=== PATIENT | male | born 1945 | race Caucasian/White ===

== ENCOUNTER → 2023-08-22 07:55 | Outpatient (REF) | payer MEDICARE, SELFPAY ==
--- NOTE | 2023-08-22 08:04 | CA_ITS ---
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 The calculated ejection fraction is 57% by biplane method. - There is mild calcification of the aortic valve. - There is mild aortic valve regurgitation. Findings Left Ventricle Normal left ventricular cavity size. There is mildly increased left ventricular wall thickness. The left ventricular systolic function is normal. The calculated ejection fraction is 57% by biplane method. There is no evidence of regional wall motion abnormalities. Evidence suggests grade I (mild) diastolic dysfunction. LV peak GLS -17.7%. Right Ventricle Normal right ventricular cavity size and systolic function. Atria Both atria are normal in size. Aortic Valve There is mild calcification of the aortic valve. There is no aortic valve stenosis. There is mild aortic valve regurgitation. Mitral Valve There is mild anterior mitral leaflet thickening. There is trace mitral valve regurgitation. There is no mitral valve stenosis. Pulmonic Valve The pulmonic valve is likely normal. Tricuspid Valve There is trace tricuspid valve regurgitation. There is no evidence of pulmonary hypertension. Great Vessels The asc aorta is normal in size. Venous The inferior vena cava is normal in size and collapses greater than 50% with inspiration. Pericardium/Pleural There is a trivial pericardial effusion. Prior Study Comparison No prior study available for comparison. Measurements 2D Linear Measurements IVSd: 1.06 0.6-0.9/0.6-1.0 cm LVIDd: 4.85 3.9-5.3/4.2-5.9 cm LVIDd Index: 2.17 2.4-3.2/2.2-3.1 cm/m2 LVIDs: 3.03 2.0-3.6 cm LVPWd: 1.11 0.7-1.1 cm Ao Root: 3.60 2.1-3.5 cm LA Diam: 4.20 2.7-3.8/3.0-4.0 cm LAIDs Index: 1.88 1.5-2.3 cm/m2 LV Mass: 241.14 67-162/88-224 g LV Mass Index: 107.65 43-95/49-115 g/m2 LVOT Diam: 2.40 3.0+(-)1.3 cm 2D Systolic Function EF 4C: 54.20 >55% EF 2C: 57.00 >55% EF BiP: 57.00 >55% Mitral Valve MV Pk E: 0.63 MV PK A: 1.03 MV Decel Time: 105.00 E/A: 0.60 E'Lateral: 5.98 E'Medial: 4.13 E/E' Med: 15.30 E/E' Lat: 10.50 PHT: 31.00 MVA PHT: 7.10 Decel Ogle: 5.99 Aortic Valve AoV Pk Sabas: 1.81 AoV Mn Sabas: 1.16 AoV VTI: 0.38 AoV Pk Grad: 13.00 Aov Mn Grad: 6.00 ROB Cont.VTI: 3.33 LVOT LVOT Pk Sabas: 1.36 LVOT Mn Sabas: 0.87 LVOT VTI: 0.28 LVOT Pk Grad: 7.00 LVOT Mn Grad: 4.00 LVOT Diam: 2.40 LVOT Area: 4.52 Diastolic Function MV Pk E: 0.63 MV Pk A: 1.03 E/A: 0.60 E'Medial: 4.13 E/E' Med: 15.30 E' Laterial: 5.98 E/E' Lat: 10.50 Right Ventricle TAPSE (mm): 27.00 TVS' Sabas: 12.00 Tricuspid Valve TR Pk Sabas: 2.25 TR Pk Grad: 20.00 RA Press: 3.00 RVSP: 23.00 Great Vessels Aorta Ao Root-2D: 3.60 2.0-3.7 cm Ao Asc: 3.80 2.1-3.4 cm Pulmonary Valve PV Pk Sabas: 1.15 Peak PV Grad: 5.00 Updated in Other Vendor System with Status of Final Ron Mcqueen MD electronically signed on 08/22/2023 1:03:16 PM with status of Final
== END ==
LOC: HO.CARD 07:55
PROVIDERS: PCP Internal Medicine; Visit Provider Family Medicine
DX: Z01.818 Encounter for other preprocedural examination (principal); R60.0 Localized edema
CPT/HCPCS: 93306; 93356

== ENCOUNTER → 2023-08-22 08:04 | Outpatient (BNV) | payer MEDICARE, SELFPAY | PROVIDERS: PCP Internal Medicine; Visit Provider Internal Medicine | DX: I35.1 Nonrheumatic aortic (valve) insufficiency (principal) | CPT/HCPCS: 93306 ==

== ENCOUNTER 2024-12-03 09:31 | Outpatient (AMB) | payer MEDICARE, SELFPAY ==
--- NOTE | 2024-12-03 09:55 | A.OFFVIS_ITS ---
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 Has a background of multiple myeloma but well controlled according to him and he has had that for almost 10 years now. He is on maintenance Pomalidomide. According to him, no prior history of coronary disease or myocardial infarction or cardiomyopathy. He states that he has been noticing some jaw pain that happens when he is going on walks extra. 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 However, he does not get jaw pain with chewing. Denies any history of chest pain or any clear cardiac symptoms otherwise. Nonspecific fatigue. Otherwise, it seems that he has also had evaluation for osteonecrosis of jaw and ruled out. He states he had a recent PET scan which was also okay. Exercise The patient engages in walking, [place]. The onset of jaw pain during these episodes raises concerns for potential cardiac causes. [facility] Medical History (Updated 12/03/24 @ 11:31 by Ron Mcqueen MD) Multiple myeloma Family History (Updated 12/03/24 @ 10:03 by Dea Jack CMA) Father Heart failure Social History (Updated 12/03/24 @ 10:04 by Dea Jack CMA) Alcohol intake: current Alcohol intake frequency: 0-2 drinks per day Alcohol type: beer, wine, hard liquor and other Patient Tobacco Use Status: Never used Tobacco Review of Systems Const Denies chills, Denies fatigue, Denies fever(s), Denies frequent falls, Denies weakness, Denies weight gain and Denies weight loss ENT Denies dizziness Card Denies chest pain, Denies leg edema, Denies lightheadedness, Denies palpitations, Denies dyspnea, Denies dyspnea on exertion and Denies orthopnea Resp Denies cough, Denies dyspnea and Denies dyspnea on exertion GI Denies bloating and Denies change in bowel habits Musc Denies muscle weakness, Denies numbness and Denies tingling Neuro Denies dizziness, Denies frequent falls, Denies numbness, Denies tingling and Denies weakness Endo Denies fatigue and Denies palpitations Physical Exam Vital Signs: Last Vital Signs Pulse 72 12/03/24 09:57 BP 124/62 12/03/24 09:57 BMI result Body Mass Index 30.3 Const General: comfortable and no acute distress Orientation/consciousness: patient oriented x3 HEENT Other: Unremarkable Head: Yes normal to inspection Neck Neck: Yes normal visual inspection Chest Chest palpation & inspection: normal inspection of the chest Resp Auscultation: clear to auscultation bilaterally Cardio Palpation: normal PMI Heart sounds: S1 normal heart sound present, S2 normal heart sound present, no gallops, no murmurs and no rubs GI Palpation (GI): Soft to palpation Back/Spine/Pelvis Other: unremarkable Skin General skin exam: no rashes or lesions noted Neuro General: patient oriented x3 Extrem General: Yes normal to inspection Psych Mental Status: mental status grossly normal Office Procedures EKG Details: EKG with underlying sinus rhythm at 72/Min; incomplete right bundle-branch block pattern; [place]. [address]-[id number], Complete Assessment & Plan Assessment & Plan (1) Jaw pain: Code(s): R68.84 - Jaw pain Category: Medical (2) Fatigue: Code(s): R53.83 - Other fatigue Category: Medical Plan Exertional jaw pain which needs further evaluation. Could be anginal presentation although he does not have clear chest pain. We will plan on exercise stress myocardial perfusion imaging study for further evaluation. We will also get an echocardiogram. We discussed about this planned today and he is willing to proceed. Discussion Notes We discussed the potential causes of the patient's jaw pain, considering both cardiac and musculoskeletal origins. I explained the rationale for conducting a stress test and an echocardiogram, highlighting the concern for angina given the pain's association with exertion. The patient was informed of the wait time for testing but reassured of the urgency placed on scheduling. Consent for proposed diagnostic evaluations was obtained, and the patient acknowledged understanding of risks and benefits. Anticipatory guidance was provided to monitor symptoms and report any escalation. Follow-up plans were discussed to review subsequent test outcomes and manage ongoing arthritis. Patient was informed and verbally consented to the use of an ambient scribe for clinic note documentation during this visit. Orders: Orders CA echo transthoracic complete Today R53.83 - Other fatigue, R68.84 - Jaw pain CA stress test Today R68.84 - Jaw pain NM cardiolite stress test Today R07.2 - Precordial pain, R68.84 - Jaw pain Patient Instructions: - Follow the upcoming schedule for stress test and echocardiogram. - Continue taking baby aspirin as prescribed. - Report any increase in pain or new symptoms immediately. - Avoid excessive jaw clenching and manage stress to mitigate temporomandibular pain. - Engage in physical activity as able, without provoking significant pain. - Attend follow-up appointments as planned to discuss test results and treatment options. Coding Level of Care Code New Pt Level 4 (37709) Complex EM visit Add On G2211 Diagnoses Jaw pain R68.84 Fatigue R53.83 CPT Codes EKG - CPT: 36489-[id number], Complete ([id number])
[2024-12-03 09:57] VITALS: BP 124/62; PULSE 72; BMI 30.3
--- OUTSIDE RECORDS SUMMARY | 2024-12-03 10:16 | XMS_ITS ---
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 Name Role Phone Iris Bush Unavailable Unavailable Bettye Julian Unavailable Unavailable Dhaval Johnosn Unavailable Unavailable Carey Bustos Unavailable Unavailable Garrett Rees Unavailable Unavailable Bi Cardozo Unavailable Unavailable Lori Galeas Unavailable Unavailable Beckie Gonzalez Unavailable Unavailable Tracey Arnold Unavailable Unavailable Katelynn Stiles Unavailable Unavailable Allergies and adverse reactions No Known Allergies Care Team Name Role Address Phone Organization Dates Bi Cardozo PCP [address] [place] [address], [id number], [place] (Office): : [facility] [place] 04/22/2022 - 04/26/2022 Iris Bush Attending Physician [address] [place] [address], [facility], [place] (Office): [phone] [facility] [place] 04/22/2022 - 04/26/2022 Bettye Julian Attending Physician [address] [place] [address], [place] (Office): [facility] [place] 04/22/2022 - 04/26/2022 Dhaval [place], [address], [place] (Office): [facility] [place] 04/22/2022 - 04/26/2022 Carey Bustos Attending Physician [address] [place] [address], [address], [place] (Office): [facility] [place] 04/22/2022 - 04/26/2022 Garrett Rees Attending Physician [address] [place], [address], [facility] (Office): [facility] [place] 04/22/2022 - 04/26/2022 Lori Galeas Attending Physician [address] [place], [address], [place] (Office): [facility] [place] 04/22/2022 - 04/26/2022 Beckie Gonzalez Attending Physician [address] [place] [address], [id number], [facility] (Office): : [facility] [place] 04/22/2022 - 04/26/2022 Tracey Arnold Attending Physician [address], [address], [place] (Office): : [facility] [place] 04/22/2022 - 04/26/2022 Katelynn Stiles Attending Physician [address] [place] [address] [address], [place], [address], [facility] (Office): : [facility] [place] 04/22/2022 - 04/26/2022 Immunizations Immunization Status Vaccine Details Vaccine Code CodeSystem Cirilo e Notes SARS-COV-2 (COVID-19) completed SARS-COV-2 (COVID-19) vaccine, mRNA, spike protein, LNP, preservative free, 30 mcg/0.3mL dose Mfg: [employer] Step 2 of Multi-step with next step required 208 CVX created date: 04/22/2022 administered date: 10/02/2020 SARS-COV-2 (COVID-19) completed SARS-COV-2 (COVID-19) vaccine, mRNA, spike protein, LNP, preservative free, 30 mcg/0.3mL dose Mfg: [employer] Step 1 of Multi-step with next step required 208 CVX created date: 04/22/2022 administered date: 09/10/2020 SARS-COV-2 (COVID-19 BOOSTER) completed SARS-COV-2 (COVID-19) vaccine, mRNA, spike protein, LNP, preservative free, 30 mcg/0.3mL dose, emelia-sucrose formulation Mfg: [employer] 217 CVX created date: 04/22/2022 administered date: 09/20/2021 SARS-COV-2 (COVID-19 BOOSTER) completed SARS-COV-2 (COVID-19) vaccine, mRNA, spike protein, LNP, preservative free, 30 mcg/0.3mL dose, emelia-sucrose formulation Mfg: [employer] 217 CVX created date: 04/22/2022 administered date: 03/22/2021 Mental Status Section Date Assessment Total Score Description 04/26/2022 BIMS 15 cognitively int act CAM 0 No delirium ind icated PHQ-9 02 minimal depress ion Problems Problem # Description Date of onset Resolved Date Code CodeSystem Concern Status 1 BENIGN PROSTATIC HYPERPLASIA WITHOUT LOWER URINARY TRACT SYMPTOMS [address] active 2 DISPLACED INTERTROCHANTERIC FRACTURE OF RIGHT FEMUR, SUBSEQUENT ENCOUNTER FOR CLOSED FRACTURE WITH ROUTINE HEALING [address] active 3 MULTIPLE MYELOMA NOT HAVING ACHIEVED REMISSION [address] active Reason for Referral No Reasons for Referral Entered Social History Social History Observation Description Start Date End Date Code Code System Current Smoking Status Tobacco smoking consumption unknown 288890801 SNOMED CT Sex Assigned At Male 1945 [address]-9 [facility] Vital Signs Code Code System Vitals Name Values and Units Timing Information 9279-1 [facility] Respiratory Rate Value=18.0 Units=/m in 04/26/2022 8462-4 [facility] Blood Pressure-Diastolic Value=53 Un its=mmHg 04/26/2022 8480-6 LOINC Blood Pressure-Systolic Hlzma=924 Un its=mmHg 04/26/2022 8310-5 [facility] Body Temperature Value=97.2 Units=?? F 04/26/2022 8867-4 [facility] Heart rate Value=64.0 Units=/min 70580-3 LOINC O2 % BldC Oximetry Value=94.0 Units= % 04/26/2022 13803-4 LOINC Pain Level Value=0.0 04/26/2022 10951-4 LOINC Weight Ekdad=822.0 Units=Lbs 8302-2 LOINC Height Value=71.5 Units=Inches 04/22/2022
== END 2024-12-03 10:41 | disposition home or self-care (01) ==
LOC: HO.HCS 09:32
PROVIDERS: PCP Internal Medicine; Visit Provider Internal Medicine
DX: R53.83 Other fatigue (principal); R68.84 Jaw pain; R94.31 Abnormal electrocardiogram [ECG] [EKG]; I45.10 Unspecified right bundle-branch block
CPT/HCPCS: 93010; 99214; G2211

== ENCOUNTER → 2024-12-03 09:31 | Outpatient (BNVA) | payer MEDICARE, SELFPAY | PROVIDERS: PCP Internal Medicine; Visit Provider Internal Medicine | DX: R68.84 Jaw pain (principal); R53.83 Other fatigue | CPT/HCPCS: 93005; 99212 ==

== ENCOUNTER → 2024-12-08 09:29 | Outpatient (REF) | payer MEDICARE, SELFPAY ==
--- NOTE | ~2024-12-08 | NM_ITS ---
EXERCISE MYOCARDIAL PERFUSION STUDY INDICATION: Coronary artery disease, angina TECHNIQUE: The patient was brought in for an exercise perfusion study on 12/08/2024. Patient performed exercise as per Mandeep protocol and was injected 30 mCi of sestamibi once target heart rate was achieved. Images were obtained using the SPECT gamma camera interlaced with the gating device. Images were obtained in supine position. Resting perfusion study was performed on 12/09/2024. Patient was administered 30 mCi of sestamibi intravenously at rest. Images were then obtained in supine position. Total DLP 132 mGy-cm. Images were processed with the software and compared side to side in short axis, horizontal long axis and vertical long axis views. FINDINGS: Raw aquisition reviewed. The stress perfusion study showed markedly decreased tracer uptake in the mid to distal septum, anterior wall, apex. No significant change with CT attenuation correction. The gated study shows normal LV systolic function with calculated LVEF of 59%. LV cavity is normal in size. The gated study shows reduced contractility in the above areas. Resting study shows mildly reduced tracer uptake at the apex and basal inferior wall. With CT attenuation correction, the basal inferior wall improves. Gating at rest reveals normal wall motion with ejection fraction at 60%. The findings are consistent with mostly reversible perfusion defect involving the mid to distal septum, anterior septum, distal part of anterior wall. NM/NM cardiolite stress test IMPRESSION: 1. Myocardial perfusion imaging study shows ischemia primarily involving the left anterior descending artery territory. 2. Gated LVEF is 59% during stress and 60% during rest. 3. Transient ischemic dilatation not present. EKG component of the test reported separately. Electronically signed by: Ron Mcqueen MD 12/10/2024 03:05 PM EDT
--- NOTE | 2024-12-08 09:35 | CA_ITS ---
Acquisition Time: 2024-12-08 09:48:43 Total Exercise Time: 00:05:02 Test Indications: JAW PAIN,Fatigue Medications: ASA VIT D DENOSUMAB POMALIDOMIDE TAMSULOSIN Protocol: MEY Max HR: 131 BPM 92% of Pred: 141 BPM Max BP: 166/76 mmHG Max Work Load: 5.8 METS Exercise stress test with exercise 5 mins 2 secs of Mey Protocol, reduced speed at 2.1mph, achieving 92% MPHR, with reports of 1/10 right sided jaw pain and SOB, with isolated PACs and PVCs, with normotensive response to exercise. WIthout EKG chnages meeting criteria for ischemia during exercise. In recovery, with downsloping ST inferiorly and in leadds V5-V6 meeting criteria for ischemia. Symptoms of jaw pain and SOB resolved quickly in early recovery. ST segment improved. Nuclear images pending. Test reviewed with Dr. Mcqueen. Referred By: Ron Mcqueen Electronically Signed By: Fransisco Mckeon
--- OUTSIDE RECORDS SUMMARY | 2024-12-08 10:17 | XMS_ITS ---
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 Name Role Phone Iris Bush Unavailable Unavailable Bettye Julian Unavailable Unavailable Dhaval Johnson Unavailable Unavailable Carey Bustos Unavailable Unavailable Garrett Rees Unavailable Unavailable Bi Cardozo Unavailable Unavailable Lori Galeas Unavailable Unavailable Beckie Gonzalez Unavailable Unavailable Tracey Arnold Unavailable Unavailable Katelynn Stiles Unavailable Unavailable Allergies and adverse reactions No Known Allergies Care Team Name Role Address Phone Organization Dates Bi Cardozo PCP [address] [place] [address], [address], [place] (Office): : [facility] [place] 04/22/2022 - 04/26/2022 Iris Bush Attending Physician [address] [place] [address], [facility], [place] (Office): [phone] [facility] [place] 04/22/2022 - 04/26/2022 Bettye Julian Attending Physician [address] [place] [address], [place] (Office): [facility] [place] 04/22/2022 - 04/26/2022 Dhaval Johnson [place], [address], [place] (Office): [facility] [place] 04/22/2022 - 04/26/2022 Carey Bustos Attending Physician [address] [place] [address], [address], [place] (Office): [facility] [place] 04/22/2022 - 04/26/2022 Garrett Rees Attending Physician [address] [place], [address], [facility] (Office): [facility] [place] 04/22/2022 - 04/26/2022 Lori Galeas Attending Physician [address] [place], [address], [place] (Office): [facility] [place] 04/22/2022 - 04/26/2022 Beckie Gonzalez Attending Physician [address] [place] [address], [address], [facility] (Office): : [facility] [place] 04/22/2022 - 04/26/2022 Tracey Arnold Attending Physician [address], [address], [place] (Office): : [facility] [place] 04/22/2022 - 04/26/2022 Katelynn Stiles Attending Physician [address] [place] [address] [address], [place], [address], [facility] (Office): : [facility] [place] 04/22/2022 - 04/26/2022 Immunizations Immunization Status Vaccine Details Vaccine Code CodeSystem Cirilo e Notes SARS-COV-2 (COVID-19) completed SARS-COV-2 (COVID-19) vaccine, mRNA, spike protein, LNP, preservative free, 30 mcg/0.3mL dose Mfg: [employer] Step 2 of Multi-step with next step required 208 CVX created date: 04/22/2022 administered date: 10/02/2020 SARS-COV-2 (COVID-19) completed SARS-COV-2 (COVID-19) vaccine, mRNA, spike protein, LNP, preservative free, 30 mcg/0.3mL dose Mfg: [employer] Step 1 of Multi-step with next step required 208 CVX created date: 04/22/2022 administered date: 09/10/2020 SARS-COV-2 (COVID-19 BOOSTER) completed SARS-COV-2 (COVID-19) vaccine, mRNA, spike protein, LNP, preservative free, 30 mcg/0.3mL dose, emelia-sucrose formulation Mfg: [employer] 217 CVX created date: 04/22/2022 administered date: 09/20/2021 SARS-COV-2 (COVID-19 BOOSTER) completed SARS-COV-2 (COVID-19) vaccine, mRNA, spike protein, LNP, preservative free, 30 mcg/0.3mL dose, emelia-sucrose formulation Mfg: [employer] 217 CVX created date: 04/22/2022 administered date: 03/22/2021 Mental Status Section Date Assessment Total Score Description 04/26/2022 BIMS 15 cognitively int act CAM 0 No delirium ind icated PHQ-9 02 minimal depress ion Problems Problem # Description Date of onset Resolved Date Code CodeSystem Concern Status 1 BENIGN PROSTATIC HYPERPLASIA WITHOUT LOWER URINARY TRACT SYMPTOMS [address] active 2 DISPLACED INTERTROCHANTERIC FRACTURE OF RIGHT FEMUR, SUBSEQUENT ENCOUNTER FOR CLOSED FRACTURE WITH ROUTINE HEALING [address] active 3 MULTIPLE MYELOMA NOT HAVING ACHIEVED REMISSION [address] active Reason for Referral No Reasons for Referral Entered Social History Social History Observation Description Start Date End Date Code Code System Current Smoking Status Tobacco smoking consumption unknown 162070364 SNOMED CT Sex Assigned At Male 1945 [address]-8 [facility] Vital Signs Code Code System Vitals Name Values and Units Timing Information 9279-1 [facility] Respiratory Rate Value=18.0 Units=/m in 04/26/2022 8462-4 [facility] Blood Pressure-Diastolic Value=53 Un its=mmHg 04/26/2022 8480-6 [facility] Blood Pressure-Systolic Pkmnx=489 Un its=mmHg 04/26/2022 8310-5 [facility] Body Temperature Value=97.2 Units=?? F 04/26/2022 8867-4 [facility] Heart rate Value=64.0 Units=/min 38892-0 LOINC O2 % BldC Oximetry Value=94.0 Units= % 04/26/2022 40721-1 LOINC Pain Level Value=0.0 04/26/2022 22412-4 LOINC Weight Nbbbx=410.0 Units=Lbs 8302-2 LOINC Height Value=71.5 Units=Inches 04/22/2022
== END ==
LOC: HO.CARD 09:29
PROVIDERS: PCP Internal Medicine; Visit Provider Internal Medicine
DX: R07.2 Precordial pain (principal); R68.84 Jaw pain
CPT/HCPCS: 78452; 93017; A9500

== ENCOUNTER → 2024-12-08 09:35 | Outpatient (BNV) | payer MEDICARE, SELFPAY | PROVIDERS: PCP Internal Medicine | DX: R06.02 Shortness of breath (principal); I49.1 Atrial premature depolarization; I49.3 Ventricular premature depolarization | CPT/HCPCS: 78452; 93016; 93018 ==

== ENCOUNTER → 2024-12-09 13:56 | Outpatient (REF) | payer MEDICARE, SELFPAY ==
--- NOTE | 2024-12-09 14:00 | CA_ITS ---
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 The calculated ejection fraction is 59% by biplane method. - The mid inferoseptal and mid anteroseptal segments are hypokinetic. - No obvious valvular pathology seen on this study. Findings Left Ventricle Normal left ventricular cavity size. The left ventricular systolic function is normal. The calculated ejection fraction is 59% by biplane method. There is evidence of regional wall motion abnormalities. Evidence suggests grade I (mild) diastolic dysfunction. There is mild septal asymmetric hypertrophy. LV peak GLS -14.6%. Wall Motion Rest Echo Findings The mid inferoseptal and mid anteroseptal segments are hypokinetic. Right Ventricle Normal right ventricular cavity size and systolic function. Atria The left atrium is mildly dilated. The right atrium is normal in size. Aortic Valve There is a normal trileaflet aortic valve. There is mild calcification of the aortic valve. There is no aortic valve stenosis. There is mild aortic valve regurgitation. Mitral Valve The mitral valve appears normal. There is mild mitral annular calcification. There is trace mitral valve regurgitation. There is no mitral valve stenosis. Pulmonic Valve There is trace pulmonic valve regurgitation. Tricuspid Valve There is trace tricuspid valve regurgitation. There is no evidence of pulmonary hypertension. Great Vessels The asc aorta is normal in size. Venous The inferior vena cava is normal in size and collapses greater than 50% with inspiration. Pericardium/Pleural There is no evidence of pericardial effusion. Prior Study Comparison Changes noted compared to prior study dated: 08/22/2023. see comment on wall motion. Recommendations, Care & Conclusions No obvious valvular pathology seen on this study. Measurements 2D Linear Measurements IVSd: 1.12 0.6-0.9/0.6-1.0 cm LVIDd: 4.93 3.9-5.3/4.2-5.9 cm LVIDd Index: 2.24 2.4-3.2/2.2-3.1 cm/m2 LVIDs: 3.25 2.0-3.6 cm LVPWd: 1.04 0.7-1.1 cm LA Diam: 4.10 2.7-3.8/3.0-4.0 cm LAIDs Index: 1.86 1.5-2.3 cm/m2 LV Mass: 246.04 67-162/88-224 g LV Mass Index: 111.84 43-95/49-115 g/m2 LVOT Diam: 2.50 3.0+(-)1.3 cm 2D Systolic Function EF 4C: 57.60 >55% EF 2C: 58.20 >55% EF BiP: 58.80 >55% Mitral Valve MV Pk E: 0.69 MV PK A: 0.81 MV Decel Time: 214.00 E/A: 0.80 E'Lateral: 5.11 E'Medial: 4.68 E/E' Med: 14.70 E/E' Lat: 13.40 PHT: 63.00 MVA PHT: 3.49 Decel [place]: 3.20 Aortic Valve AoV Pk [place]: 1.33 AoV Mn [place]: 0.94 AoV VTI: 0.29 AoV Pk Grad: 7.00 Aov Mn Grad: 4.00 ROB Cont.VTI: 3.91 AI Pk [place]: 3.58 AI [place]: 1.63 LVOT LVOT Pk [place]: 1.03 LVOT Mn [place]: 0.69 LVOT VTI: 0.23 LVOT Pk Grad: 4.00 LVOT Mn Grad: 2.00 LVOT Diam: 2.50 LVOT Area: 4.91 Diastolic Function MV Pk E: 0.69 MV Pk A: 0.81 E/A: 0.80 E'Medial: 4.68 E/E' Med: 14.70 E' Laterial: 5.11 E/E' Lat: 13.40 Right Ventricle TAPSE (mm): 23.00 TVS' Sab[place]: 13.50 Tricuspid Valve TR Pk [place]: 2.14 TR Pk Grad: 18.00 RA Press: 3.00 RVSP: 21.00 Great Vessels Aorta Sinus of Valsalva: 3.97 2.0-3.5 cm Ao Asc: 3.90 2.1-3.4 cm Updated in Other Vendor System with Status of Final Ron Mcqueen MD electronically signed on 12/11/2024 11:11:02 AM with status of Final
== END ==
LOC: HO.CARD 13:56
PROVIDERS: PCP Internal Medicine; Visit Provider Internal Medicine
DX: R68.84 Jaw pain (principal); R53.83 Other fatigue
CPT/HCPCS: 93306

== ENCOUNTER → 2024-12-09 14:00 | Outpatient (BNV) | payer MEDICARE, SELFPAY | PROVIDERS: PCP Internal Medicine; Visit Provider Internal Medicine | DX: I42.8 Other cardiomyopathies (principal); I35.1 Nonrheumatic aortic (valve) insufficiency; I35.8 Other nonrheumatic aortic valve disorders; I34.81 Nonrheumatic mitral (valve) annulus calcification | CPT/HCPCS: 93306; 93356 ==

== ENCOUNTER 2024-12-17 07:54 | Outpatient (REF) | payer MEDICARE, SELFPAY ==
[2024-12-17 08:27] LABS: Hematocrit 43.4 % (42.0-52.0); Hemoglobin 14.9 g/dl (14.0-18.0); Mean Corpuscular HGB Conc 34.3 g/dl (31.0-36.0); Mean Corpuscular Hemoglobin 29.3 pg (27.0-33.0); Mean Corpuscular Volume 85.3 fL (80.0-98.0); Mean Platelet Volume 9.6 fL (9.4-12.4); Platelet Count 238 X10*3/uL (160-400); Red Blood Count 5.09 X10*6/uL (4.60-5.80); Red Cell Distribution Width 13.6 % (11.0-16.0); White Blood Count 3.8 X10*3/uL (4.8-10.8)
[2024-12-17 08:43] LABS: Prothrombin Time 11.8 SEC (10.9-12.4)
[2024-12-17 09:12] LABS: Alanine Aminotransferase 26 U/L (0-40); Albumin Level 3.8 g/dL (3.5-5.0); Alkaline Phosphatase 107 U/L (39-117); Anion Gap 14 (12-20); Aspartate Amino Transferase 23 U/L (5-37); Bilirubin Direct 0.1 mg/dL (0.0-0.5); Bilirubin Total 0.6 mg/dL (0.0-1.0); Blood Urea Nitrogen 27 mg/dL (9-16); Calcium 9.5 mg/dL (8.4-10.2); Carbon Dioxide 29 mmol/L (22-29); Chloride 104 mmol/L (96-108); Cholesterol 206 mg/dL (<200); Estimated Glomerular Filt Rate > 60; Glucose Random 128 mg/dL (60-115); HDL Cholesterol 49 mg/dL (>40); LDL Cholesterol Calculated 138 mg/dL (<100); Potassium 5.5 mmol/L (3.3-5.1); Sodium 141 mmol/L (135-145); Total Protein 6.7 g/dL (6.5-8.0); Triglycerides 97 mg/dL (<150)
== END 2024-12-17 07:55 | disposition home or self-care (01) ==
LOC: HO.LAB 07:54
PROVIDERS: PCP Internal Medicine; Visit Provider Internal Medicine
DX: R94.39 Abnormal result of other cardiovascular function study (principal); E78.5 Hyperlipidemia, unspecified; I25.10 Atherosclerotic heart disease of native coronary artery without angina pectoris
CPT/HCPCS: 36415; 80048; 80061; 80076; 85027; 85610

== ENCOUNTER → 2024-12-19 23:59 | Outpatient (BNV) | payer MEDICARE, SELFPAY | PROVIDERS: PCP Internal Medicine; Visit Provider Internal Medicine Cardiovascular Disease | DX: I25.118 Atherosclerotic heart disease of native coronary artery with other forms of angina pectoris (principal); R07.9 Chest pain, unspecified; R93.1 Abnormal findings on diagnostic imaging of heart and coronary circulation | CPT/HCPCS: 92928; 92929; 92972; 92978; 93458; 99152 ==

== ENCOUNTER 2024-12-30 10:38 | Outpatient (AMB) | payer MEDICARE, SELFPAY ==
--- NOTE | 2024-12-30 11:04 | MHC.OFFVIS ---
Vital Signs 12/30/24 11:05 Height 5 ft 11 in Weight 213 lb 13.574 oz BMI 29.8 BP 120/78 Blood Pressure Location Lt brachial Position Sitting Pulse 66 Intake Visit Reasons: Follow up post cardiac cath Intake Note: Follow-up post cardiac cath Certified Residential Medication Aide Required: No Allergies No Known Allergies Allergy (Verified 12/03/24 09:58) Medication List - Last Reconciled 12/30/24 by Ron Mcqueen MD aspirin (Adult Low Dose Aspirin) 81 mg PO DAILY atorvastatin 80 mg PO DAILY cholecalciferol (vitamin D3) 50 mcg PO DAILY denosumab 120 mg subcut Q4W lorazepam 1 mg PO BEDTIME PRN metoprolol succinate ER 25 mg PO DAILY nitroglycerin 0.4 mg sublingual Q5M PRN pomalidomide 3 mg PO DAILY tamsulosin 0.8 mg PO DAILY ticagrelor (Brilinta) 90 mg PO BID HPI Comments Details: Mahamed returns for follow-up. Recently seen in consultation regarding exertional jaw pain. He underwent noninvasive workup with an echocardiogram and stress test which were abnormal. Subsequently, underwent cardiac catheterization and LAD stenting. He states that after the procedure he has not had any further jaw pain. Otherwise, he feels quite good. History of multiple myeloma but well controlled for many years. [facility] Medical History (Updated 12/30/24 @ 11:29 by Ron Mcqueen MD) Multiple myeloma Family History (Updated 12/03/24 @ 10:03 by Dea Jack CMA) Father Heart failure Social History (Updated 12/03/24 @ 10:04 by Dea Jack CMA) Alcohol intake: current Alcohol intake frequency: 0-2 drinks per day Alcohol type: beer, wine, hard liquor and other Patient Tobacco Use Status: Never used Tobacco Review of Systems Const Denies chills, Denies fatigue, Denies fever(s), Denies frequent falls, Denies weakness, Denies weight gain and Denies weight loss ENT Denies dizziness Card Denies chest pain, Denies leg edema, Denies lightheadedness, Denies palpitations, Denies dyspnea, Denies dyspnea on exertion, Denies orthopnea and Denies other (loss of consciousness) Resp Denies cough, Denies dyspnea and Denies dyspnea on exertion GI Denies hematochezia and Denies change in stool character Musc Denies abnormal gait, Denies muscle weakness, Denies numbness, Denies radiating pain into limb and Denies tingling Neuro Denies abnormal gait, Denies dizziness, Denies frequent falls, Denies numbness, Denies tingling and Denies weakness Endo Denies fatigue and Denies palpitations Physical Exam Vital Signs: Last Vital Signs Pulse 66 12/30/24 11:05 BP 120/78 12/30/24 11:05 BMI result Body Mass Index 29.8 Const General: comfortable and no acute distress Orientation/consciousness: patient oriented x3 HEENT Other: Unremarkable Head: Yes normal to inspection Neck Neck: Yes normal visual inspection Chest Chest palpation & inspection: normal inspection of the chest Resp Auscultation: clear to auscultation bilaterally Cardio Palpation: normal PMI Heart sounds: S1 normal heart sound present, S2 normal heart sound present, no gallops, no murmurs and no rubs GI Palpation (GI): Soft to palpation Back/Spine/Pelvis Other: unremarkable Skin General skin exam: no rashes or lesions noted Neuro General: patient oriented x3 Extrem General: Yes normal to inspection Psych Mental Status: mental status grossly normal Assessment & Plan Assessment & Plan (1) Atherosclerotic cardiovascular disease: Code(s): I25.10 - Atherosclerotic heart disease of [place] coronary artery without angina pectoris Category: Medical Plan Cardiac studies reviewed. Echocardiogram with LVEF of 59%. Mid inferoseptal/anteroseptal hypokinesis. Myocardial perfusion imaging study shows ischemia in the LAD territory. Cardiac catheterization-paroxysmal LAD stenosis status post PCI. No significant disease in circumflex or RCA. Patient is much improved. Continue long-term aspirin. Brilinta for one year at least. He is on a small dose of beta-blockers that may be continued. Statins. Follow-up lipids in a few months. 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 Cardiac Rehabilitation. With regard to elevated potassium, patient states that it was rechecked and was told to be normal. Follow-up in 3-4 months. Discussion Notes We discussed the successful management of coronary artery disease with stent placement in the left anterior descending artery and the subsequent strategy including the initiation of statin therapy for hyperlipidemia. The importance of cardiac rehabilitation was emphasized for improved cardiovascular health. I explained the low risk of complications from the stent given its advanced design and durability. The patient agreed with the planned rehabilitation and expressed commitment to dietary modifications. Patient was informed and verbally consented to the use of an ambient scribe for clinic note documentation during this visit. Orders: Orders Lipid Panel 3 Months E78.5 - Hyperlipidemia, unspecified, I25.10 - Atherosclerotic heart disease of [place] coronary artery without angina pectoris Cardiac Rehab Today Z95.5 - Presence of coronary angioplasty implant and graft Liver Panel 3 Months I25.10 - Atherosclerotic heart disease of [place] coronary artery without angina pectoris Referrals [employer] Referral I25.10 - Atherosclerotic heart disease of [place] coronary artery without angina pectoris Patient Instructions: - Take prescribed statin medication to lower cholesterol. - Attend cardiac rehab sessions regularly. - Follow a heart-healthy diet. - Use nitroglycerin for any chest pain. - Have regular blood tests for cholesterol and potassium levels. - Return for follow-up care as scheduled. - Report any new symptoms or concerns immediately. Coding Level of Care Code Est Pt Level 4 (72900) Complex EM visit Add On G2211 Diagnoses Atherosclerotic cardiovascular disease I25.10
[2024-12-30 11:05] VITALS: BP 120/78; PULSE 66; BMI 29.8
== END 2024-12-30 11:41 | disposition home or self-care (01) ==
LOC: HO.HCS 10:38
PROVIDERS: PCP Internal Medicine; Visit Provider Internal Medicine
DX: I25.10 Atherosclerotic heart disease of native coronary artery without angina pectoris (principal)
CPT/HCPCS: 99214; G2211

== ENCOUNTER → 2024-12-30 10:38 | Outpatient (BNVA) | payer MEDICARE, SELFPAY | PROVIDERS: PCP Internal Medicine; Visit Provider Internal Medicine | DX: I25.10 Atherosclerotic heart disease of native coronary artery without angina pectoris (principal); E78.5 Hyperlipidemia, unspecified; Z95.5 Presence of coronary angioplasty implant and graft | CPT/HCPCS: 99212 ==

== ENCOUNTER 2025-04-08 07:54 | Outpatient (AMB) | payer MEDICARE, SELFPAY ==
--- NOTE | 2025-04-08 08:25 | MHC.OFFVIS ---
Vital Signs 04/08/25 08:26 Height 5 ft 11 in Weight 211 lb 10.3 oz BMI 29.5 BP 128/68 Blood Pressure Location Lt brachial Position Sitting Pulse 76 Pulse Source Pulse Oximeter Intake Visit Reasons: 3 month f/up Allergies No Known Allergies Allergy (Verified 12/03/24 09:58) Medication List - Last Reconciled 04/08/25 by Ron Mcqueen MD aspirin (Adult Low Dose Aspirin) 81 mg PO DAILY atorvastatin 80 mg PO DAILY cholecalciferol (vitamin D3) 50 mcg PO DAILY denosumab 120 mg subcut Q4W lorazepam 1 mg PO BEDTIME PRN metoprolol succinate ER 25 mg PO DAILY nitroglycerin 0.4 mg sublingual Q5M PRN pomalidomide 3 mg PO DAILY tamsulosin 0.8 mg PO DAILY ticagrelor (Brilinta) 90 mg PO BID HPI Comments Details: Mahamed returns for follow-up. Recently seen in consultation regarding exertional jaw pain. He underwent noninvasive workup with an echocardiogram and stress test which were abnormal. Subsequently, underwent cardiac catheterization and LAD stenting. After that, it seems that the jaw pain disappeared completely. He is completely active with no limitations. Goes to cardiac rehabilitation. [facility] Medical History (Updated 12/30/24 @ 11:29 by Ron Mcqueen MD) Multiple myeloma Family History (Updated 12/03/24 @ 10:03 by Dea Jack CMA) Father Heart failure Social History (Updated 12/03/24 @ 10:04 by Dea Jack CMA) Alcohol intake: current Alcohol intake frequency: 0-2 drinks per day Alcohol type: beer, wine, hard liquor and other Patient Tobacco Use Status: Never used Tobacco Review of Systems Const Denies weakness ENT Denies dizziness Card Denies chest pain, Denies chest pain with activity, Denies syncope, Denies rapid heart rate, Denies pedal edema, Denies edema, Denies leg edema, Denies lightheadedness, Denies palpitations, Denies dyspnea, Denies dyspnea on exertion and Denies orthopnea Resp Denies cough, Denies dyspnea and Denies dyspnea on exertion GI Denies hematochezia and Denies change in stool character Musc Denies abnormal gait, Denies muscle cramps, Denies muscle weakness, Denies numbness, Denies radiating pain into limb and Denies tingling Neuro Denies abnormal gait, Denies dizziness, Denies syncope, Denies numbness, Denies tingling and Denies weakness Endo Denies palpitations Physical Exam Vital Signs: Last Vital Signs Pulse 76 04/08/25 08:26 BP 128/68 04/08/25 08:26 BMI result Body Mass Index 29.5 Const General: comfortable and no acute distress Orientation/consciousness: patient oriented x3 HEENT Other: Unremarkable Head: Yes normal to inspection Neck Neck: Yes normal visual inspection Chest Chest palpation & inspection: normal inspection of the chest Resp Auscultation: clear to auscultation bilaterally Cardio Palpation: normal PMI Heart sounds: S1 normal heart sound present, S2 normal heart sound present, no gallops, no murmurs and no rubs GI Palpation (GI): Soft to palpation Back/Spine/Pelvis Other: unremarkable Skin General skin exam: no rashes or lesions noted Neuro General: patient oriented x3 Extrem General: Yes normal to inspection Psych Mental Status: mental status grossly normal Assessment & Plan Assessment & Plan (1) Atherosclerotic cardiovascular disease: Code(s): I25.10 - Atherosclerotic heart disease of [place] coronary artery without angina pectoris Category: Medical Plan Cardiac studies reviewed. Echocardiogram with LVEF of 59%. Mid inferoseptal/anteroseptal hypokinesis. Myocardial perfusion imaging study shows ischemia in the LAD territory. Cardiac catheterization-paroxysmal LAD stenosis status post PCI. No significant disease in circumflex or RCA. Clinically, asymptomatic. Long-term aspirin. Brilinta for one year from time of stent. Remains on low-dose beta-blockers. On statins. Follow-up lipids from PCP well controlled. Cardiac Rehabilitation. Total time spent including review of data, counseling, documentation, coordination of care-31 minutes. Coding Level of Care Code Est Pt Level 4 (88486) Complex EM visit Add On G2211 Diagnoses Atherosclerotic cardiovascular disease I25.10
[2025-04-08 08:26] VITALS: BP 128/68; PULSE 76; BMI 29.5
== END 2025-04-08 08:43 | disposition home or self-care (01) ==
LOC: HO.HCS 07:56
PROVIDERS: PCP Internal Medicine; Visit Provider Internal Medicine
DX: I25.10 Atherosclerotic heart disease of native coronary artery without angina pectoris (principal)
CPT/HCPCS: 99214; G2211

== ENCOUNTER → 2025-04-08 07:54 | Outpatient (BNVA) | payer MEDICARE, SELFPAY | PROVIDERS: PCP Internal Medicine; Visit Provider Internal Medicine | DX: I25.10 Atherosclerotic heart disease of native coronary artery without angina pectoris (principal) | CPT/HCPCS: 99212 ==